=== PATIENT | male | born 1995 | race Caucasian/White ===

== ENCOUNTER 2018-07-02 14:42 | Outpatient (CLI) | payer OTHER, SELFPAY ==
--- NOTE | 2018-07-02 14:14 | DI.RAD_ITS ---
SYMPTOMS/DIAGNOSIS: PAIN IN RT SHOULDER, M25.511 RIGHT SHOULDER: Five views were obtained. No bony or soft tissue abnormality is seen.
== END 2018-07-02 15:02 ==
PROVIDERS: PCP Family Medicine; Visit Provider Nurse Practitioner Family
DX: M25.511 Pain in right shoulder (principal)
CPT/HCPCS: 73030

== ENCOUNTER 2018-07-12 22:08 | Emergency (ER) | payer OTHER, SELFPAY ==
[2018-07-12 22:10] VITALS: BP 133/70; PULSE 64; RESP 18; TEMP 37.7; O2SAT 98
--- NOTE | 2018-07-12 22:13 | DI.RAD_ITS ---
SYMPTOM/DIAGNOSIS: LAT ANKLE PAIN RIGHT ANKLE: Three views were obtained. Ankle mortise is well maintained. No fracture is seen. No other bony abnormality.
--- NOTE | 2018-07-12 22:14 | W.ED.GENAD ---
Discharge Plan Disposition Patient Disposition: HOME Condition: Stable Discharge Details Chief Complaint: Orthopedic Clinical Impression: Right ankle sprain Primary Care Provider: Juan Francisco Díaz ED Provider: Octavio Santos Home Meds and New Rx's Prescriptions: New ibuprofen [IBU] 600 mg tablet 600 mg PO QID PRN (Reason: pain) Qty: 20 RF: 0 Discharge Instructions Instructions: Ankle Sprain (ED) Additional Instructions: Feel free to return for any new or significant worsening of symptoms otherwise please use crutches for the next 3 days and then slowly advance activity and weightbearing as tolerated please wear the walking boot for the next 2 weeks then if not improving call the orthopedic office for reexamination or reassessment. Referrals: Shane Hogue MD [ [facility] STAFF PHYSICIAN] - (As needed in the next couple weeks if not improving. Call the office for scheduling of an appointment) Medical Decision Making Patient presenting to the emergency department for chief complaint of right ankle pain. Patient states that he was walking and ankle gave out on him. Patient does state that 2 weeks ago he did sprain his ankle but was getting better but then today when ankle gave out it caused severe worsening of pain discomfort. Patient has significant lateral ankle pain with radiation into the mid tibia patient has significant lateral ankle swelling and tenderness. Physical exam is otherwise unremarkable. patient received ketorolac for pain control pending radiological imaging to rule out acute fracture. Review of radiological imaging and radiologist interpretation shows no acute fracture dislocation. Patient was placed in a walking boot and attempted to ambulate with but was unable to bear weight. Patient was placed on crutches and encouraged to use these for the next 2-3 days and then slowly slowly advance weightbearing activities as tolerated. Patient informed to call orthopedist for reassessment in the next couple weeks if not seeing improvement or as needed for reassessment. HPI General Mode of arrival: wheelchair. Date/Time Provider Initiated Documentation: 07/12/18 22:08. Limitations to Documentation: no limitations. Information obtained by: patient and RN notes reviewed. History of Present Illness 23 year old M presents to the emergency department with the chief complaint of Ankle pain, with intensity rated at 7. Quality is described as other (pain), and is localized to the right and lower extremity. Patient started experiencing this minute(s) (10) and it has been constant. No relieving factors improve symptom(s), Movement worsens symptoms . Patient did receive the following treatments prior to arrival, none Related Data Home Medications Medication Instructions Recorded Confirmed ibuprofen [IBU] 600 mg PO QID PRN #20 tab 07/12/18 Previous Rx's Medication Instructions Recorded ibuprofen [IBU] 600 mg PO QID PRN #20 tab 07/12/18 Allergies Allergy/AdvReac Type Severity Reaction Status Date / Time No Known Allergies Allergy Verified 07/12/18 22:29 Review of Systems Constitutional Reports system reviewed and no additional complaints, except as docu Cardiovascular Reports system reviewed and no additional complaints, except as docu Respiratory Reports system reviewed and no additional complaints, except as docu Musculoskeletal Reports as per HPI Neurologic Denies sensory deficit PFSH Family History Mother Heart disease Father No problems noted. Other Diabetes Essential hypertension Personal history of malignant neoplasm Mental disorder Social History current occupational status: employed current occupation: [employer] Smoking/Tobacco Use Status: Former Tobacco Use alcohol intake: current alcohol intake frequency: a few times a week substance use type: marijuana Surgical History Appendectomy (01/09/17) Excision, Pilonidal Cyst Removal of foreign body repair median nerve (10/08/12) Exam Const General: not in acute distress and not diaphoretic Orientation: alert, awake and oriented x3 Resp Effort & Inspection: normal respiratory effort and able to speak in complete sentences Cardio Rate: regular rate Rhythm: regular rhythm Extrem Right lower extremity: knee Details: normal to inspection; no tenderness and no swelling, lower leg Details: tenderness Location: of the distal fibula, ankle Details: tenderness Location: of the lateral malleolus and anterolaterally, swelling Details: laterally and abnormal ROM Details: pain with passive ROM Details: with inversion; no abrasions and no lacerations and foot Details: normal to inspection; no tenderness
--- NOTE | 2018-07-12 22:19 | ED.GENADUL_ITS ---
Discharge Plan Disposition Patient Disposition: HOME Condition: Stable Discharge Details Chief Complaint: Orthopedic Clinical Impression: Right ankle sprain Primary Care Provider: Juan Francisco Díaz ED Provider: Octavio Santos Home Meds and New Rx's Prescriptions: New ibuprofen [IBU] 600 mg tablet 600 mg PO QID PRN (Reason: pain) Qty: 20 RF: 0 Discharge Instructions Instructions: Ankle Sprain (ED) Additional Instructions: Feel free to return for any new or significant worsening of symptoms otherwise please use crutches for the next 3 days and then slowly advance activity and weightbearing as tolerated please wear the walking boot for the next 2 weeks then if not improving call the orthopedic office for reexamination or reassessment. Referrals: Shane Hogue MD [ [facility] STAFF PHYSICIAN] - (As needed in the next couple weeks if not improving. Call the office for scheduling of an appointment ) Medical Decision Making Patient presenting to the emergency department for chief complaint of right ankle pain. Patient states that he was walking and ankle gave out on him. Patient does state that 2 weeks ago he did sprain his ankle but was getting better but then today when ankle gave out it caused severe worsening of pain discomfort. Patient has significant lateral ankle pain with radiation into the mid tibia patient has significant lateral ankle swelling and tenderness. Physical exam is otherwise unremarkable. patient received ketorolac for pain control pending radiological imaging to rule out acute fracture. Review of radiological imaging and radiologist interpretation shows no acute fracture dislocation. Patient was placed in a walking boot and attempted to ambulate with but was unable to bear weight. Patient was placed on crutches and encouraged to use these for the next 2-3 days and then slowly slowly advance weightbearing activities as tolerated. Patient informed to call orthopedist for reassessment in the next couple weeks if not seeing improvement or as needed for reassessment. HPI General Mode of arrival: wheelchair . Date/Time Provider Initiated Documentation: 07/12/18 22:08 . Limitations to Documentation: no limitations . Information obtained by: patient and RN notes reviewed . History of Present Illness 23 year old M presents to the emergency department with the chief complaint of Ankle pain, with intensity rated at 7. Quality is described as other (pain ), and is localized to the right and lower extremity. Patient started experiencing this minute(s) (10) and it has been constant. No relieving factors improve symptom(s), Movement worsens symptoms . Patient did receive the following treatments prior to arrival, none Related Data Home Medications Medication Instructions Recorded Confirmed ibuprofen [IBU] 600 mg PO QID PRN #20 tab 07/12/18 Previous Rx's Medication Instructions Recorded ibuprofen [IBU] 600 mg PO QID PRN #20 tab 07/12/18 Allergies Allergy/AdvReac Type Severity Reaction Status Date / Time No Known Allergies Allergy Verified 07/12/18 22:29 Review of Systems Constitutional Reports system reviewed and no additional complaints, except as docu Cardiovascular Reports system reviewed and no additional complaints, except as docu Respiratory Reports system reviewed and no additional complaints, except as docu Musculoskeletal Reports as per HPI Neurologic Denies sensory deficit PFSH Family History Mother Heart disease Father No problems noted. Other Diabetes Essential hypertension Personal history of malignant neoplasm Mental disorder Social History current occupational status: employed current occupation: [employer] Smoking/Tobacco Use Status: Former Tobacco Use alcohol intake: current alcohol intake frequency: a few times a week substance use type: marijuana Surgical History Appendectomy (01/09/17) Excision, Pilonidal Cyst Removal of foreign body repair median nerve (10/08/12) Exam Const General: not in acute distress and not diaphoretic Orientation: alert, awake and oriented x3 Resp Effort & Inspection: normal respiratory effort and able to speak in complete sentences Cardio Rate: regular rate Rhythm: regular rhythm Extrem Right lower extremity: knee Details: normal to inspection; no tenderness and no swelling, lower leg Details: tenderness Location: of the distal fibula, ankle Details: tenderness Location: of the lateral malleolus and anterolaterally, swelling Details: laterally and abnormal ROM Details: pain with passive ROM Details: with inversion; no abrasions and no lacerations and foot Details: normal to inspection; no tenderness
[2018-07-12] MEDS: Ketorolac 60 MG/2 ML VIAL IM (22:20)
--- NOTE | 2018-07-12 22:40 | DI.VRAD_ITS ---
EXAM: XR Right Ankle Complete, 3 or more Views EXAM DATE/TIME: 07/12/2018 10:15 PM CLINICAL HISTORY: 23 years old, male; Pain; Ankle; Right; Patient HX: Lateral ankle pain TECHNIQUE: XR Right ankle 3 or more views. COMPARISON: No relevant prior studies available. FINDINGS: Bones/joints: The osseous mineralization is within normal limits. Soft tissues: Mild soft tissue around the ankle, especially laterally. Small ankle joint effusion. IMPRESSION: No acute fracture or malalignment. Soft tissue swelling and small joint effusion. Dictated and Authenticated by: Rosa Ellis MD. Ordering:BRITTON PERALTA MD
[2018-07-12 23:06] VITALS: BP 133/70; PULSE 64; RESP 18; TEMP 37.7; O2SAT 98
== END 2018-07-12 23:06 | disposition home or self-care (01) ==
PROVIDERS: Emergency Provider Nurse Practitioner Family; PCP Family Medicine
DX: S93.401A Sprain of unspecified ligament of right ankle, initial encounter (principal); W18.49XA Other slipping, tripping and stumbling without falling, initial encounter
CPT/HCPCS: 29515; 96372; 99284; 73610; E0114; J1885; L4361

== ENCOUNTER 2018-08-13 15:05 | Outpatient (REF) | payer OTHER, SELFPAY | END 2018-08-13 15:25 | LOC: LBN 15:05 | PROVIDERS: PCP Family Medicine; Visit Provider Nurse Practitioner Family | DX: J02.9 Acute pharyngitis, unspecified (principal) | CPT/HCPCS: 87070 ==

== ENCOUNTER 2018-10-24 15:49 | Outpatient (CLI) | payer OTHER, SELFPAY ==
--- NOTE | 2018-10-24 16:00 | DI.RAD_ITS ---
SYMPTOMS/DIAGNOSIS: CHRONIC COUGH, DYSPNEA, R05, R06.00, ? ASTHMA VERSUS COPD VERSUS OTHER PA AND LATERAL CHEST: The cardiac and mediastinal contours have a normal appearance. The lungs are normally inflated and appear clear. There are no visible emphysematous changes. There is no peribronchial thickening or visible interstitial changes. IMPRESSION: Negative chest x-ray.
== END 2018-10-24 16:09 ==
PROVIDERS: PCP Family Medicine; Visit Provider Nurse Practitioner Family
DX: R05 Cough (principal); R06.00 Dyspnea, unspecified
CPT/HCPCS: 71046

== ENCOUNTER 2018-10-29 03:12 | Outpatient (CLI) | payer OTHER, SELFPAY ==
--- NOTE | 2018-10-29 | PFT_ITS ---
PULMONARY FUNCTION TEST REPORT Patient identification Binh Cazares DATE OF [birth year] DATE OF SERVICE 10/29/18 REQUESTING PROVIDER - Ivis Mercedes N.P. INTERPRETATION OF STUDY Spirometry shows no evidence of obstructive airways disease. No bronchodilator response. LUNG VOLUMES - Lung volumes show no evidence of restriction. DIFFUSION CAPACITY- Normal. AIRWAY RESISTANCE - Normal. IMPRESSION Overall normal pulmonary function study. Clinical correlation recommended. The pre-bronchodilators flow volume loop shows a slightly flattened expiratory loop, but this is likely an effort related variant as the post bronchodilator one appears to be more normal. Nonetheless clinically, the patient should be evaluated for possible intrathoracic large airway obstruction. Clinical correlation therefore recommended. Maura Santillan M.D. KELLY/fabby T 10/31/18
[2018-10-29] MEDS: Albuterol HFA 18 GM 200 PUFF INH IH (11:58)
[2018-10-29] MEDS: Inhaler, Assist Device 1 EACH MC (11:58)
== END 2018-10-29 03:32 ==
PROVIDERS: PCP Family Medicine; Visit Provider Nurse Practitioner Family
DX: R06.09 Other forms of dyspnea (principal); R05 Cough
CPT/HCPCS: 94060; 94150; 94726; 94729

== ENCOUNTER 2019-10-19 21:37 | Emergency (ER) | payer SELFPAY ==
[2019-10-19 21:43] VITALS: BP 133/83; PULSE 103; TEMP 36.6; O2SAT 99
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
[2019-10-19] MEDS: Acetaminophen 500 MG TAB 1000 MG PO (21:57)
[2019-10-19] MEDS: Normal Saline 1,000 ML 1000 ML IV (21:57)
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
[2019-10-19 22:03] LABS: Abs Immature Grans 0.01 k/cumm (0.0-0.09); Absolute Basophil Count 0.05 k/cumm (0.0-0.2); Absolute Eosinophil Count 0.04 k/cumm (0.0-0.7); Absolute Lymphocyte Count 2.13 k/cumm (1.2-3.4); Absolute Monocyte Count 0.74 k/cumm (0.11-0.7); Absolute Neutrophil Count 4.53 k/cumm (1.2-6.7); Basophils % 0.7; Eosinophils % 0.5; HCT 43.9 % (40.0-50.0); HGB 15.3 g/dL (13.5-17.5); Immature Grans % 0.1 %; Lymphocytes % 28.4; Mean Corp. HGB Concentration 34.9 g/dL (32.0-36.0); Mean Corpuscular Hemoglobin 30.1 pg (27.0-33.0); Mean Corpuscular Volume 86.2 fL (80-95); Mean Platelet Volume 9.6 fL (8.0-11.0); Monocytes % 9.9; Neutrophils % 60.4; Platelet Count 282 x1000/uL (130-400); RBC 5.09 m/cumm (4.50-6.00); RBC Distribution Width 11.9 % (11.8-14.1)
[2019-10-19 22:19] LABS: ETHANOL BLOOD < 3.0 mg/dL (<3)
[2019-10-19] MEDS: Omnipaque 350 MG/ML 100 ML BTL IJ (22:22)
[2019-10-19 22:25] LABS: ALT 29 U/L (16-63); AST 34 U/L (15-37); Albumin 4.2 g/dL (3.4-5.0); Alkaline Phosphatase 97 U/L (46-116); Anion Gap 12.2 mmol/L (3-11); BUN 16 mg/dL (7-18); Bilirubin, Total 0.3 mg/dL (0.2-1.0); CO2 27.8 mmol/L (21.0-32.0); CREATININE 1.28 mg/dL (0.70-1.30); Calcium 8.6 mg/dL (8.5-10.1); Chloride 104 mmol/L (98-107); Glucose 105 mg/dL (74-106); Lipase 177 U/L (73-393); Potassium 3.7 mmol/L (3.5-5.1); Sodium 144 mmol/L (136-145); Total Protein 7.6 g/dL (6.4-8.2)
[2019-10-19 22:26] LABS: Troponin I < 0.05 ng/Ml (<0.06)
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
[2019-10-19] MEDS: Ketorolac 30 MG/ML VIAL IVP (22:51)
[2019-10-19 22:54] LABS: Bilirubin Negative (Negative); Blood Trace-intact (Negative); Clarity Clear (Clear); Glucose Negative (Negative); Ketones Negative (Negative); Leukocyte Esterase Negative (Negative); Nitrite Negative (Negative); Specific Gravity 1.015 (1.005-1.025); Urobilinogen 0.2 EU/dL (Up TO 0.2); pH 8.5 (5-8)
[2019-10-19 22:55] LABS: Bacteria Few HPF (Negative); Epithelial Cells Rare HPF (Negative); WBC Negative HPF (0-5)
[2019-10-19 22:56] LABS: C & S Indicated? No; Casts Negative LPF (Negative); Crystals Negative HPF (Negative); Mucus Trace (Negative)
[2019-10-19 23:00] LABS: *AMPHETAMINES SCREEN URINE Negative (Negative); *BARBITURATES SCREEN URINE Negative (Negative); *BENZODIAZEPINES SCREEN URINE Negative (Negative); Cannabinoids THC POSITIVE (Negative); Cocaine Screen,Urine Negative (Negative); METHADONE URINE SCREEN Negative (Negative); OPIATES URINE SCREEN Negative (Negative)
[2019-10-19 23:01] LABS: Tricyclic Antidepressants Negative (Negative)
[2019-10-19 23:11] VITALS: BP 125/75; PULSE 92; RESP 20; O2SAT 98
== END 2019-10-19 23:15 | disposition home or self-care (01) ==
PROVIDERS: Emergency Provider Student in an Organized Health Care Education/Training Program; PCP Family Medicine
DX: S06.0X9A Concussion with loss of consciousness of unspecified duration, initial encounter (principal); R07.81 Pleurodynia; S20.211A Contusion of right front wall of thorax, initial encounter; V86.52XA Driver of snowmobile injured in nontraffic accident, initial encounter; R91.1 Solitary pulmonary nodule
CPT/HCPCS: 36415; 74177; 80053; 80307; 83690; 93005; 96361; 96374; 99285; 70450; 71260; 72125; 80320; 81003; 81015; 84484; 85025; 93010; 99284; J1885; J3490; L0172

== ENCOUNTER 2020-06-10 19:05 | Emergency (ER) | payer BC, SELFPAY ==
[2020-06-10 19:12] VITALS: BP 108/60; PULSE 98; RESP 16; TEMP 36.8; O2SAT 98
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
[2020-06-10] MEDS: Acetaminophen 500 MG TAB 1000 MG PO (20:03)
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
[2020-06-10 20:55] VITALS: BP 114/60; PULSE 62; RESP 16; O2SAT 100
[2020-06-10] MEDS: Ketorolac 30 MG/ML VIAL IM (21:10)
== END 2020-06-10 21:28 | disposition home or self-care (01) ==
PROVIDERS: Emergency Provider Emergency Medicine; PCP Family Medicine
DX: S06.0X0A Concussion without loss of consciousness, initial encounter (principal); R43.1 Parosmia; S49.92XA Unspecified injury of left shoulder and upper arm, initial encounter; V86.56XA Driver of dirt bike or motor/cross bike injured in nontraffic accident, initial encounter
CPT/HCPCS: 96372; 99284; 70450; 71046; 72125; 73030; 73200; J1885

== ENCOUNTER 2020-09-01 20:21 | Outpatient (REF) | payer BC, SELFPAY ==
[2020-09-03 23:43] LABS: COVID-19 RT-PCR Result NEGATIVE (Negative)
== END 2020-09-01 20:41 ==
LOC: NCHCN 20:21
PROVIDERS: PCP Family Medicine; Visit Provider Family Medicine
DX: Z20.828 Contact with and (suspected) exposure to other viral communicable diseases (principal)
CPT/HCPCS: U0003

== ENCOUNTER 2023-03-11 07:06 | Emergency (ER) | payer BC, SELFPAY ==
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
[2023-03-11 07:06] VITALS: BP 137/73; PULSE 100; RESP 18; TEMP 36.6; O2SAT 99
[2023-03-11] MEDS: Acetaminophen 500 MG TAB 1000 MG PO (07:20)
[2023-03-11] MEDS: Ibuprofen 800 MG TAB PO (07:20)
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
== END 2023-03-11 09:44 | disposition home or self-care (01) ==
PROVIDERS: Emergency Provider Emergency Medicine; PCP Family Medicine
DX: S99.922A Unspecified injury of left foot, initial encounter (principal)
CPT/HCPCS: 99283; 73630

== ENCOUNTER 2023-03-28 09:51 | Outpatient (CLI) | payer BC, SELFPAY ==
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
== END 2023-03-28 09:52 | disposition home or self-care (01) ==
LOC: DIORS 09:51
PROVIDERS: PCP Family Medicine; Referring Provider Family Medicine; Visit Provider Physician Assistant
DX: S92.352D Displaced fracture of fifth metatarsal bone, left foot, subsequent encounter for fracture with routine healing (principal); X58.XXXD Exposure to other specified factors, subsequent encounter
CPT/HCPCS: 73630

== ENCOUNTER 2024-09-15 07:32 | Emergency (ER) | payer BC, SELFPAY ==
[2024-09-15 07:35] VITALS: BP 120/62; PULSE 87; RESP 20; TEMP 36.9; O2SAT 100
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
[2024-09-15] MEDS: Lidocaine 5% Patch 1 PATCH TP (08:16)
[2024-09-15] MEDS: Methocarbamol 500 MG TAB 1000 MG PO (08:16)
[2024-09-15] MEDS: Acetaminophen 500 MG TAB 1000 MG PO (08:16)
[2024-09-15] MEDS: Ketorolac 10 MG TAB PO (08:17)
[2024-09-15 09:18] LABS: Bilirubin Negative (Negative); Blood Negative (Negative); Clarity Sl Cloudy (Clear); Glucose Negative (Negative); Ketones Trace mg/dL (Negative); Leukocyte Esterase Negative (Negative); Nitrite Negative (Negative); Specific Gravity 1.015 (1.005-1.025); Urobilinogen 0.2 mg/dL (Up to 0.2); pH >= 9.0 (5-8)
[2024-09-15 09:27] LABS: RBC 0-2 HPF (0-2); WBC 0-2 HPF (0-5)
[2024-09-15 09:28] LABS: Bacteria Rare HPF (Negative); C & S Indicated? No; Casts Negative LPF (Negative); Crystals Negative HPF (Negative); Epithelial Cells Negative HPF (Negative); Mucus Negative (Negative)
[2024-09-15 09:47] VITALS: BP 106/56; PULSE 64; RESP 16; O2SAT 98
== END 2024-09-15 09:50 | disposition home or self-care (01) ==
LOC: ER 09:36
PROVIDERS: Emergency Provider Emergency Medicine; PCP Family Medicine
DX: M54.50 Low back pain, unspecified (principal); F17.290 Nicotine dependence, other tobacco product, uncomplicated
CPT/HCPCS: 99283; 81003; 81015